=== PATIENT | female | born 1955 | race Caucasian/White ===

== ENCOUNTER → 2016-12-17 | Outpatient (CLI) | payer OTHER | LOC: FIMAGING 08:46 | PROVIDERS: ATTEND Internal Medicine Endocrinology, Diabetes & Metabolism | DX: R94.6 Abnormal results of thyroid function studies (principal) ==

== ENCOUNTER → 2016-12-31 | Outpatient (CLI) | payer OTHER | LOC: FIMAGING 12:35 | DX: Z12.31 Encounter for screening mammogram for malignant neoplasm of breast (principal) | CPT/HCPCS: G0202 ==

== ENCOUNTER → 2017-01-08 | Outpatient (CLI) | payer OTHER | LOC: FIMAGING 10:09 | PROVIDERS: ATTEND Internal Medicine | DX: Z12.39 Encounter for other screening for malignant neoplasm of breast (principal); R92.2 Inconclusive mammogram | CPT/HCPCS: G0204 ==

== ENCOUNTER 2017-01-19 08:19 | Day surgery (SDC) | payer OTHER ==
[2017-01-19] MEDS ORDERED: FAMOTIDINE 20 MG TAB PO ONE (08:22)
[2017-01-19] MEDS ORDERED: ASPIRIN EC 325 MG TAB PO ONE (08:22)
[2017-01-19] MEDS ORDERED: NS 1,000 ML IV ONE (08:22)
[2017-01-19] MEDS ORDERED: DIAZEPAM 5 MG TAB PO ONE (08:22)
[2017-01-19] MEDS ORDERED: diphenhydrAMINE 25 MG CAP PO ONE (08:22)
--- NOTE | 2017-01-19 09:03 | CPEKG ---
Heart Rate: 53 RR Interval: 1132 P-R Interval: 168 QRSD Interval: 68 QT Interval: 448 QTC Interval: 421 P [place]: 34 QRS [place]: 35 T Wave [place]: 47 EKG Severity - NORMAL ECG - EKG Impression: Resolution of T-wave abnormalities since March 22, 2016 EKG Impression: SINUS RHYTHM EKG Impression: Probable left atrial abnormality Electronically Signed By: Bryson Chi 19-Jan-2017 12:20:05
[2017-01-19 09:32] LABS: % IMMATURE GRANULYOCYTES 0.4 % (0.0-1.1); ABSOLUTE IMMATURE GRANULOCYTES 0.03 10^3/uL (0.00-0.10); ADD DIFF? NO; ADD MORPH? NO; ADD SCAN? NO; ATYPICAL LYMPHOCYTE FLAG 0 (0-99); FRAGMENT RBC FLAG 0 (0-99); HEMATOCRIT 39.7 % (38.0-47.0); HEMOGLOBIN 13.4 g/dL (12.6-16.3); LEFT SHIFT FLG 0 (0-99); LIPEMIA HEMOLYSIS FLAG 90 (0-99); MEAN CELL HEMOGLOBIN 33.1 pg (27.9-34.1); MEAN CELL HEMOGLOBIN CONCENTR. 33.8 g/dL (32.4-36.7); MEAN PLATELET VOLUME 10.1 fL (8.7-11.7); PLATELET CLUMPS FLAG 0 (0-99); PLATELET COUNT 233 10^3/uL (150-400); RED BLOOD CELL COUNT 4.05 10^6/uL (4.18-5.33); RED CELL DISTRIBUTION WIDTH 12.3 % (11.5-15.2)
[2017-01-19] MEDS ORDERED: LIDOCAINE 1% 30 ML SDV ONE (09:43)
[2017-01-19 09:44] LABS: PROTIME(PATIENT) 13.1 SEC (12.0-15.0)
[2017-01-19] MEDS ORDERED: HEPARIN 10,000 UNIT/10 ML MDV ONE (09:44)
[2017-01-19] MEDS ORDERED: fentaNYL 100 MCG/2 ML INJ ONE (09:44)
[2017-01-19] MEDS ORDERED: VERAPAMIL 5 MG/2 ML VIAL ONE (09:44)
[2017-01-19] MEDS ORDERED: MIDAZOLAM 2 MG/2 ML VIAL ONE (09:44)
[2017-01-19] MEDS ORDERED: IOPAMIDOL (ISOVUE 370) 100 ML BTL IV ONE (09:45)
[2017-01-19 10:03] LABS: ANION GAP 10 mEq/L (8-16); CARBON DIOXIDE 23 mEq/l (22-31); CHLORIDE 107 mEq/L (97-110); CHOLESTEROL 207 mg/dL (140-220); CHOLESTEROL/HDL RATIO 3.18 RATIO (1.00-4.44); CREATININE 1.3 mg/dL (0.6-1.0); GLOMERULAR FILTRATION RATE 42; GLUCOSE 86 mg/dL (70-100); HIGH DENSITY LIPOPROTEIN 65 mg/dL (40-85); LDL/HDL RATIO 1.83 RATIO (1.00-3.22); LOW DENSITY LIPOPROTEIN 119 mg/dL (80-100); NON-HIGH DENSITY LIPOPROTEIN 142 mg/dL (90-129); POTASSIUM 3.9 mEq/L (3.5-5.2); SODIUM 140 mEq/L (134-144); TRIGLYCERIDE 118 mg/dL (35-135); VERY LOW DENSITY LIPOPROTEINS 23 mg/dL (8-25)
--- NOTE | 2017-01-19 14:13 | PDDXCAT ---
Diagnostic Cath Note - . Date: 01/19/17 Forestry Supervisor: Nathan Indication: CCC Class III and IV angina on medical treatment - Procedure Access: left wrist Procedure: left heart catheterization, coronary angiography - Materials Left Heart Cath materials: JL3.5, JR4.0 - Findings-Left Heart Catheterization LM: calcified. Unobstructed LAD: Stents patent LCX: Stents patent RCA: Stents patent Complications: none Closure method: TR Band Assessment: Patent site of prior stenting. Multi-vessel CAD. Patient Problems: Problems Problem Status Onset Fusion of spine of thoracolumbar region Acute Bacteremia due to Pseudomonas Acute Coronary artery disease Acute Chest pain Acute
== END 2017-01-19 15:53 | disposition home or self-care (01) ==
LOC: FCATH 08:19
PROVIDERS: ATTEND Internal Medicine Interventional Cardiology
DX: I25.10 Atherosclerotic heart disease of native coronary artery without angina pectoris (principal); E78.5 Hyperlipidemia, unspecified; I10 Essential (primary) hypertension; M06.9 Rheumatoid arthritis, unspecified; R78.81 Bacteremia; K21.9 Gastro-esophageal reflux disease without esophagitis; D59.3 Hemolytic-uremic syndrome; M85.80 Other specified disorders of bone density and structure, unspecified site; R00.2 Palpitations; L40.9 Psoriasis, unspecified; N28.9 Disorder of kidney and ureter, unspecified; Z95.5 Presence of coronary angioplasty implant and graft
CPT/HCPCS: 93005; 93458; C1769; J1644; J2250; J3010; Q9967

== ENCOUNTER 2017-04-29 16:01 | Observation (INO) | payer OTHER ==
--- NOTE | 2017-04-29 16:30 | EDPHY ---
H & P Time Seen by Provider: 04/29/17 16:04 HPI/ROS: CHIEF COMPLAINT: Hypertension, Left sided weakness. HISTORY OF PRESENT ILLNESS: The patient is a 62-year-old female presenting with hypertension and left sided weakness. 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 She states it "felt like my arm wasn't connected to me." Her blood pressure at that time was elevated at 200/100. Her pressure has since remained elevated. When she stood up to walk to the BR, her left foot felt floppy, like it didn't want to move and she was leaning to the left. This has now resolved. She also c/o two weeks of intermittent left sided chest discomfort. The cp is a sharp sensation that originates in the axilla and radiates under her breast and into her chest. This discomfort lasts for hours at a time. No alleviating or aggravating factors. She denies changes in speech, changes in vision, headache, or dizziness. REVIEW OF SYSTEMS: A comprehensive 10 point review of systems is otherwise negative aside from elements mentioned in the history of present illness. Past Medical/Surgical History: Hypertension Social History: . Smoking Status: Never smoked Physical Exam: General Appearance: Alert, pleasant Eyes: Pupils equal and round, no conjunctival pallor or injection ENT, Mouth: Mucous membranes moist Neck: Normal inspection Respiratory: Lungs are clear to auscultation Cardiovascular: Regular rate and rhythm Gastrointestinal: Abdomen is soft and non-tender Neurological: Alert, oriented x3, cranial nerves II through XII intact, motor 5/ 5, sensory intact to light touch Skin: Warm and dry, no rash Extremities: Nontender, no pedal edema Psychiatric: anxious Constitutional: Initial Vital Signs Temperature (C) 36.9 C 04/29/17 16:05 Heart Rate 65 04/29/17 16:05 Respiratory Rate 20 04/29/17 16:05 Blood Pressure 204/126 H 04/29/17 16:05 O2 Sat (%) 97 04/29/17 16:05 O2 Delivery Mode Room Air Allergies/Adverse Reactions: amlodipine besylate [From Norvasc] Allergy (Verified 04/29/17 16:23) cefepime Allergy (Verified 04/29/17 16:23) etanercept [From Enbrel] Allergy (Verified 04/29/17 22:30) levofloxacin Allergy (Verified 04/29/17 16:23) nifedipine [From Procardia] Allergy (Verified 04/29/17 16:23) tamsulosin HCl [From Flomax] Allergy (Verified 04/29/17 22:30) Home Medications: Medication Instructions Recorded predniSONE 5 mg PO DAILY #30 tab 02/26/15 prednisoLONE ACET 1% [Pred Forte 1 drops LEFTEYE DAILY #1 opht.btl 02/26/15 1% (*)] Cholecalciferol (Vitamin D3) 5,000 unit PO Q7D 03/13/16 [Vitamin D3] Eculizumab [Soliris] 1,200 mg IV Q21D 03/13/16 Fluconazole [Diflucan] 200 mg PO DAILY 03/13/16 Lisinopril [Zestril 5 mg (*)] 5 mg PO DAILY 03/21/16 Ondansetron Odt [Zofran Odt 4 mg 4 mg PO Q4 PRN 03/21/16 (*)] Aspirin [Aspirin EC] 81 mg PO DAILY 04/29/17 Ciprofloxacin [Cipro] 500 mg PO DAILY 04/29/17 Citric Acid/Sodium Citrate [Sod 10 ml PO BID 04/29/17 Citrate-Citric Acid Soln] Clopidogrel Bisulfate [Clopidogrel] 75 mg PO DAILY 04/29/17 Herbals/Supplements -Info Only 1 ea PO DAILY 04/29/17 Hydrochlorothiazide 12.5 mg PO DAILY 04/29/17 Methimazole [METHIMAZOLE] 10 mg PO DAILY 04/29/17 Metoprolol Succinate 25 mg PO DAILY 04/29/17 Nitroglycerin [Nitrostat 0.4 mg 0.4 mg SL Q5M PRN 04/29/17 (*)] Pravastatin Sodium [Pravachol] 80 mg PO DAILY 04/29/17 Ranolazine [Ranexa] 500 mg PO BID 04/29/17 traMADol [Ultram 50 mg (*)] 50 mg PO BID PRN 04/29/17 Medical Decision Making - Diagnostics EKG Interpretation: EKG interpreted by me reveals normal sinus rhythm, normal axis, normal intervals , ST and T segments normal. Interpretation: normal EKG Imaging Results: CT of the brain reveals chronic microvascular changes, read by the radiologist. Imaging: Discussed imaging studies w/ special education preschool teacher Radiologist ED Course/Re-evaluation: Clinical presentation concerning for acute TIA. BP is high, will obs for now. Neuro exam is normal and NIH stroke scale is zero. stat EKG reveals no ischemia or dysrhythmia. stat CT head reveals no evidence of acute CVA or hemorrhage. Already took ASA today. Pt c/o intermitted left sided weakness while in the ED. Serial exams unchanged and neuro exam normal. CT results d/w pt. Understands rationale for admission for further evaluation of cp and TIA. I consulted the hospitalist, Dr. Kearney, who accepts the patient for admission. Differential Diagnosis: includes though not limited to ACS, CVA, TIA, tumor, hemorrhage, hypoglycemia. - Data Points Laboratory Results: Laboratory Results 04/29/17 11:00 04/29/17 11:00 Medications Given: Discontinued Medications Aspirin Buffered (Aspirin Ec) 81 mg PO DAILY [facility] Stop: 10/27/17 08:59 Last Admin: 04/30/17 09:07 Dose: 81 mg Ciprofloxacin (Cipro) 500 mg PO DAILY [facility] PRN Reason: Protocol Stop: 05/30/17 08:59 Last Admin: 04/30/17 09:04 Dose: 500 mg Citric Acid/Sodium Citrate (Bicitra) 10 ml PO BID [facility] Stop: 10/26/17 20:59 Last Admin: 04/30/17 09:03 Dose: 10 ml Clopidogrel Bisulfate (Plavix) 75 mg PO DAILY [facility] Stop: 10/27/17 08:59 Last Admin: 04/30/17 09:04 Dose: 75 mg Fluconazole (Diflucan) 200 mg PO DAILY [facility] Stop: 05/30/17 08:59 Last Admin: 04/30/17 09:19 Dose: 200 mg Hydrochlorothiazide (Hydrochlorothiazide) 12.5 mg PO DAILY [facility] Stop: 10/27/17 08:59 Last Admin: 04/30/17 09:04 Dose: 12.5 mg Lisinopril (Zestril) 5 mg PO HS [facility] Stop: 10/26/17 20:59 Last Admin: 04/29/17 22:14 Dose: 5 mg Methimazole (Tapazole) 10 mg PO HS [facility] Stop: 10/26/17 21:59 Last Admin: 04/29/17 22:15 Dose: 10 mg Metoprolol Succinate (Toprol Xl) 25 mg PO HS [facility] Stop: 10/26/17 20:59 Last Admin: 04/29/17 22:14 Dose: 25 mg Pravastatin Sodium (Pravachol) 80 mg PO HS [facility] Stop: 10/26/17 20:59 Last Admin: 04/29/17 22:15 Dose: 80 mg Prednisolone Acetate (Pred Forte 1%) 1 drops LEFTEYE DAILY [facility] Stop: 10/27/17 08:59 Last Admin: 04/30/17 11:12 Dose: Not Given Prednisone (Prednisone) 5 mg PO DAILY [facility] Stop: 10/27/17 08:59 Last Admin: 04/30/17 09:04 Dose: 5 mg Ranolazine (Ranexa) 500 mg PO BID [facility] Stop: 10/26/17 20:59 Last Admin: 04/30/17 09:04 Dose: 500 mg Departure - Departure Disposition: [facility] Inpatient Acute Clinical Impression: Left-sided weakness Condition: Fair Report Scribed for: Ana Laura Patel Report Scribed by: Elizabeth Mcqueen Date of Report: 04/29/17 Time of Report: 16:36 Physician Review and Approval Statement: 04/29/17 16:36 Portions of this note were transcribed by a medical staff credentialing coordinator. I personally performed the history, physical exam, and medical decision-making; and confirmed the accuracy of the information in the transcribed note.
--- NOTE | 2017-04-29 16:43 | CPEKG ---
Heart Rate: 60 RR Interval: 1000 P-R Interval: 152 QRSD Interval: 56 QT Interval: 452 QTC Interval: 452 P [place]: 6 QRS [place]: 25 T Wave [place]: 47 EKG Severity - NORMAL ECG - EKG Impression: SINUS RHYTHM Electronically Signed By: Ana Laura Patel 29-Apr-2017 20:41:36
[2017-04-29 16:52] LABS: % IMMATURE GRANULYOCYTES 0.8 % (0.0-1.1); ABSOLUTE IMMATURE GRANULOCYTES 0.05 10^3/uL (0.00-0.10); ADD DIFF? NO; ADD MORPH? NO; ADD SCAN? NO; ATYPICAL LYMPHOCYTE FLAG 0 (0-99); FRAGMENT RBC FLAG 0 (0-99); HEMATOCRIT 42.6 % (38.0-47.0); HEMOGLOBIN 14.2 g/dL (12.6-16.3); LEFT SHIFT FLG 0 (0-99); LIPEMIA HEMOLYSIS FLAG 80 (0-99); MEAN CELL HEMOGLOBIN 32.3 pg (27.9-34.1); MEAN CELL HEMOGLOBIN CONCENTR. 33.3 g/dL (32.4-36.7); MEAN CELL VOLUME 96.8 fL (81.5-99.8); MEAN PLATELET VOLUME 10.9 fL (8.7-11.7); PLATELET CLUMPS FLAG 0 (0-99); PLATELET COUNT 231 10^3/uL (150-400); RED CELL DISTRIBUTION WIDTH 12.9 % (11.5-15.2)
[2017-04-29 17:05] LABS: ANION GAP 13 mEq/L (8-16); CALCIUM 10.2 mg/dL (8.5-10.4); CARBON DIOXIDE 20 mEq/l (22-31); CHLORIDE 107 mEq/L (97-110); CREATININE 1.3 mg/dL (0.6-1.0); GLOMERULAR FILTRATION RATE 42; GLUCOSE 89 mg/dL (70-100); POTASSIUM 4.4 mEq/L (3.5-5.2); SODIUM 140 mEq/L (134-144)
[2017-04-29 17:17] LABS: TROPONIN I < 0.012 ng/mL (0-0.034)
[2017-04-29] MEDS ORDERED: ONDANSETRON DISINTEGRATING 4 MG TAB PO PRN ×2 (18:39→20:21)
[2017-04-29] MEDS ORDERED: ONDANSETRON 4 MG/2 ML VIAL IVP PRN (18:39)
[2017-04-29] MEDS ORDERED: ACETAMINOPHEN 325 MG TAB PO PRN (18:39)
--- NOTE | 2017-04-29 20:01 | GHP ---
[f rep st] HISTORY AND PHYSICAL DATE OF ADMISSION: 04/29/2017 HISTORY OF PRESENT ILLNESS: The patient is a pleasant 62-year-old female with a history of atypical hemolytic uremia, coronary artery disease with stents, who was getting an outpatient infusion in [facility] [place] today when she developed left-sided weakness that occurred as she was getting up t o leave. The infusion today was eculizumab, also known as Soliris. This is an anti-hemolytic uremi c syndrome drug. She was noted to be hypertensive, much more so than usual. Her was there. He did not notice any facial droop. Her left arm felt light but not weak. When I see her, she finds that her symptoms have largely improved. She does have palpitations, but these are somewhat chronic in nature for her and not new. She has no previous history of atrial arr hythmia. She does have coronary disease. No fever, chills, cough, sputum, nausea, vomiting, diarrhea. She states that her left leg is not ty pically weak. She does wear a lift in the left shoe, but this is the same one she has always been w earing. It is not new, etc. REVIEW OF SYSTEMS: Complete 10-point review of systems conducted. Negative except as noted in the H PI. PAST MEDICAL HISTORY: 1. Coronary disease with multiple stents. 2. Atypical hemolytic anemia. 3. following a back surgery. 4. Pseudomonal back infection following spine surgery. 5. Chronic kidney disease with baseline creatinine of 1.3 to 1.7. 6. Seronegative rheumatoid arthritis. 7. Hypertension. 8. Reflux. 9. Osteoporosis left hip surgery, wrist surgery. HOME MEDICATIONS: Aspirin, biotin, vitamin D3, ciprofloxacin (suppressive), clobetasol topical, ecu lizumab, fluconazole, hydrochlorothiazide, lisinopril, ondansetron, Plavix, prednisolone eye drops, 5 mg of prednisone, Ranexa, sodium citrate, tramadol. ALLERGIES: Amlodipine, cefepime, levofloxacin, etanercept, nifedipine, and tamsulosin, SOCIAL HISTORY: She lives in [place]. present at the bedside. Nonsmoker. Nondrinker. FAMILY HISTORY: Notable for kidney disease. PHYSICAL EXAM: VITAL SIGNS: Temp 36.9, blood pressure 204/126, now about 170/100, pulse in the 50s and 60s, breathing 20 times a minute, 97% on room air. GENERAL: No acute distress. Sclerae anict markell. Oropharynx clear. Mucous membranes are moist. NECK: Supple without lymphadenopathy or JVD. LUNGS: Clear to auscultation bilaterally. HEART: S1, S2. Port. ABDOMEN: Soft, nontender, non distended. LOWER EXTREMITIES: Without edema. Calves are nontender. SKIN: Without rash. NEUROLO GIC: 4/5 strength of flexion and extension of the left leg compared with the right. Otherwise, str ength is normal including the left upper extremity. There is no facial droop. Cranial nerves 2-12 are intact. DIAGNOSTIC DATA: CAT scan reported to me shows chronic microvascular ischemic disease without acute event. EKG shows sinus at 60 with normal axis and intervals. No ST or T-wave changes. I have discussed th e case with Dr. Annie Patel. ASSESSMENT/PLAN: A 62-year-old female who presents with left leg weakness and left arm lightness, c oncerning for neurovascular event. 1. Question stroke. The patient has very mild weakness and a low NIH stroke scale and at this poin t in time is not a candidate for lytics. I do have concerns that there may be a smaller stroke has been ordered. We will complete the stroke workup with lipid panel, hemoglobin A1c, and e chocardiogram as well as MRI of the brain. 2. Coronary artery disease. Continue her medications. 3. History of autoimmune hemolytic anemia. I do not think that the medication is playing a role in this. She has been on this for a number of years. 4. Chronic kidney disease. Creatinine at baseline. 5. Prophylaxis. Pharmacologic prophylaxis indicated if in the hospital longer than 24 hours. For now, will just go with SCDs. She is on dual antiplatelets. 6. Disposition. Observation status. /[id number]/MODL
[2017-04-29] MEDS ORDERED: traMADol 50 MG TAB PO PRN (20:22)
[2017-04-29] MEDS ORDERED: LISINOPRIL 5 MG TAB PO SCH (21:00)
[2017-04-29] MEDS ORDERED: METOPROLOL SUCCINATE XR 25 MG TAB PO SCH (21:00)
[2017-04-29] MEDS ORDERED: PRAVASTATIN SODIUM 40 MG TAB PO SCH (21:00)
[2017-04-29] MEDS ORDERED: METHIMAZOLE 5 MG TAB PO SCH (22:00)
[2017-04-29] MEDS: RANOLAZINE 500 MG TAB.ER PO SCH (22:14)
[2017-04-29] MEDS: CITRIC ACID/SODIUM CITRATE 30 ML UDCUP PO SCH (22:15)
[2017-04-30 04:49] LABS: % IMMATURE GRANULYOCYTES 0.4 % (0.0-1.1); ABSOLUTE IMMATURE GRANULOCYTES 0.02 10^3/uL (0.00-0.10); ADD DIFF? NO; ADD MORPH? NO; ADD SCAN? NO; ATYPICAL LYMPHOCYTE FLAG 0 (0-99); FRAGMENT RBC FLAG 0 (0-99); HEMATOCRIT 39.2 % (38.0-47.0); HEMOGLOBIN 12.8 g/dL (12.6-16.3); LEFT SHIFT FLG 0 (0-99); LIPEMIA HEMOLYSIS FLAG 80 (0-99); MEAN CELL HEMOGLOBIN 31.7 pg (27.9-34.1); MEAN CELL HEMOGLOBIN CONCENTR. 32.7 g/dL (32.4-36.7); MEAN PLATELET VOLUME 10.4 fL (8.7-11.7); PLATELET CLUMPS FLAG 0 (0-99); PLATELET COUNT 221 10^3/uL (150-400); RED BLOOD CELL COUNT 4.04 10^6/uL (4.18-5.33); RED CELL DISTRIBUTION WIDTH 12.8 % (11.5-15.2)
[2017-04-30 04:59] LABS: INR 1.03 (0.83-1.16); PROTIME(PATIENT) 13.4 SEC (12.0-15.0)
[2017-04-30 05:09] LABS: ANION GAP 11 mEq/L (8-16); CALCIUM 9.8 mg/dL (8.5-10.4); CARBON DIOXIDE 22 mEq/l (22-31); CHLORIDE 110 mEq/L (97-110); CHOLESTEROL 177 mg/dL (140-220); CREATININE 1.3 mg/dL (0.6-1.0); GLOMERULAR FILTRATION RATE 42; GLUCOSE 75 mg/dL (70-100); HIGH DENSITY LIPOPROTEIN 61 mg/dL (40-85); LDL/HDL RATIO 1.54 RATIO (1.00-3.22); LOW DENSITY LIPOPROTEIN 94 mg/dL (80-100); NON-HIGH DENSITY LIPOPROTEIN 116 mg/dL (90-129); POTASSIUM 4.2 mEq/L (3.5-5.2); SODIUM 143 mEq/L (134-144); TRIGLYCERIDE 111 mg/dL (35-135); VERY LOW DENSITY LIPOPROTEINS 22 mg/dL (8-25)
[2017-04-30 08:40] VITALS: O2SAT 99
[2017-04-30] MEDS ORDERED: prednisoLONE ACET 1% 5 ML OPHT.BTL LEFTEYE SCH (09:00)
[2017-04-30] MEDS ORDERED: predniSONE 5 MG TAB PO SCH (09:00)
[2017-04-30] MEDS ORDERED: HYDROCHLOROTHIAZIDE 25 MG TAB PO SCH (09:00)
[2017-04-30] MEDS ORDERED: ASPIRIN EC 81 MG TAB PO SCH (09:00)
[2017-04-30] MEDS ORDERED: Herbals/Supplements -Info Only PO SCH (09:00)
[2017-04-30] MEDS ORDERED: CIPROFLOXACIN 500 MG TAB PO SCH (09:00)
[2017-04-30] MEDS ORDERED: CLOPIDOGREL BISULFATE 75 MG TAB PO SCH (09:00)
[2017-04-30] MEDS ORDERED: FLUCONAZOLE 100 MG TAB PO SCH (09:00)
[2017-04-30] MEDS: CITRIC ACID/SODIUM CITRATE 30 ML UDCUP PO SCH (09:03)
[2017-04-30] MEDS: RANOLAZINE 500 MG TAB.ER PO SCH (09:04)
[2017-04-30 09:32] LABS: HEMOGLOBIN A1C 5.3 % (4.0-6.0)
--- NOTE | 2017-04-30 09:38 | GCON ---
[f rep st] CONSULTATION REFERRING PHYSICIAN: Silvestre Kearney MD HISTORY: The patient is a 62-year-old woman, whom I am asked to see in neurologic consultation mor rice an episode yesterday of some dysfunction of her left arm and some abnormal feelings in the lef t side of her head. The patient has an extremely complex history, which dates back to around 2002, when she had been receiving Enbrel infusions for treatment of psoriatic arthritis. During this time frame, she had a phenomenon develop with dysfunction of the left side of her head, like a pain or a bnormal sensation that was a little hard to put into words. She subsequently developed what sounds like a visual field impairment, and had trouble trying to write a check at the time. This led to ex tensive evaluation with Neurology and assessments in [place]. She had brain MRI showing lesions comp atible with demyelination, and was thought to be complications of either Enbrel or multiple sclerosi s. The neurologist at the time who was treating her, thought he would treat for multiple sclerosis given the uncertainty, and she was put on Avonex for a few months. After this, she got another opin ion at the [facility] with Dr. Dolan, who ultimately felt she probably did not have multiple sc lerosis, and had her discontinue the treatment, and she has never been on any other treatment for th at disease since then. The ultimate conclusion was that she probably had lesions associated with En brel use, which has been documented, although a relatively rare phenomenon. She has not been on idalmis t treatment now for 14 years. She later developed intractable lumbar spine problems, and had surgery about 2 to 2-1/2 years ago. She had some complications with pseudomonas infection, and developed hemolytic uremic syndrome, and has subsequently been diagnosed with an atypical hemolytic uremic syndrome, and is on regular infusi ons for the last 2 years for this exceptionally rare condition, which is apparently relatively stabl e. She has had some other symptoms in the past, with transient neurologic dysfunction or nonspecifi c feelings of disequilibrium, and says that it is not rare for her to temporarily feel vertigo-type symptoms. Yesterday, she was getting treated with Soliris, this medication for her hemolytic uremic syndrome, when she started to have an abnormal feeling in the left side of her head, and then started to have a sense that her left arm was not connected to her body or floating, without clarity as to whether i t was actually weak or not. She also tells me for several weeks she has been having some unusual pa in in the left axilla region and along the upper anterolateral thorax, sometimes into the arm, and w hen she was having these symptoms yesterday, there was a question raised whether it could represent cardiac problem. She got her infusion, and then started to develop symptoms with associated hyperte nsion, having a systolic around 200 when her baseline is more like 110. All this led to Dr. Scooter mcdowell ing a rescue squad called and had the patient go to the emergency room for appropriate diagnostic ev aluation. For the most part, symptoms were resolved within an hour or so. The exact time frame is hard to say. She did not have clear-cut deficits on neurologic exam, so NIH stroke scale has basica lly been 0. In order to thoroughly evaluate everything, she had a head CT, that was unremarkable fo r anything specific, and MRI showing nonspecific white matter changes, but we do not have the old on e directly available for comparison, because it was 2002, she said. She has had a carotid ultrasoun d, with results pending. She tells me now she basically feels back to her baseline. She is not having headache, and does not have the pain or dissociated feeling or abnormal sensations in the left upper extremity. There are not clear-cut alleviating or exacerbating factors. The symptoms were moderate when they occurred a nd had some similarity to other unusual phenomena she has had over the years. REVIEW OF SYSTEMS: 10-point review of systems was completed and unremarkable except for that noted above. PAST MEDICAL HISTORY: Notable for coronary disease with stenting; this atypical hemolytic uremic sy ndrome; lumbar spine surgery with some chronic unequal leg length; pseudomonal infection after spine surgery in the back, 2014; chronic kidney disease; psoriatic arthritis or seronegative rheumatoid a rthritis; hypertension; reflux; osteoporosis. ALLERGIES: Amlodipine, cefepime, levofloxacin, etanercept, nifedipine, tamsulosin, these intermitte nt infusions. MEDICATIONS: Prior to coming to the hospital included aspirin, biotin, vitamin D3, clobetasol, topi pernell fluconazole, hydrochlorothiazide, lisinopril, ondansetron, Plavix, prednisone eye drops, 5 mg of prednisone, Ranexa, sodium citrate, and tramadol. SOCIAL HISTORY: She lives in [place]. She is . No smoking. No alcohol. FAMILY HISTORY: Kidney disease. She says she has had genetic analysis for mutations known to be as sociated with HUS, but has not had any positive results. PHYSICAL EXAMINATION: VITAL SIGNS: Blood pressure 155/78. The pressure last evening when she came in, at 4 in the afternoon, was 204/126, and remained close to 200 systolic over the next several ho urs, though was down to 125 systolic at 2335. Current pulse is 53, respirations 17, temperature 36. 8, and she has remained afebrile. GENERAL: She is well developed, lying in the bed, in no acute di stress. HEENT: Eyes are clear. NECK: Supple with no bruits or masses. CARDIAC: Regular rate an d rhythm. No murmur. EXTREMITIES: No cyanosis or edema. No skin rash or purpura. NEUROLOGIC: S he is awake, alert, and attentive, and oriented to person, place, and time. She has good recent and remote memory. Good general fund of knowledge. Normal concentration and attention. The language is fluent. Pupils 2 mm and reactive. I cannot view the fundi. Visual serrato are full. Extraocula r movements are intact. Normal facial sensation and strength. Palate elevates symmetrically. Tong ue protrudes midline. Hearing is preserved. No weakness of head turning or shoulder shrug. Motor exam: Normal muscle bulk and tone, with 5/5 strength and no abnormal movements. Sensation is prese rved for temperature and light touch. Reflexes are 1+ and symmetric. No pathologic reflexes. No a taxic movements in the upper extremities. DIAGNOSTIC DATA: I have directly reviewed the brain MRI and see multiple bilateral nonspecific whit e matter changes consistent with areas of demyelination, most likely, versus chronic ischemic vascul ar disease. We do not have the old study currently available for direct comparison. I have also re viewed the head CT, which does not show hemorrhage or stroke or mass lesions. LABORATORY STUDIES: Unremarkable CBC and INR, and chemistry shows creatinine of 1.3. LDL cholester ol 94. ASSESSMENT: The patient has experienced an episode of neurologic dysfunction, which goes along with other episodes that have occurred intermittently since 2002. The initial episodes were thought to be related to complications of Enbrel use, and was subsequently discontinued. An episode a few year s ago, where she had lost perception and could not remember part of a bike ride, was of uncertain ca use. She says she never had any neurologic workup for that. She has subsequently had some paresthe jaime and discomfort intermittently in the last 2 weeks in the left axilla region and arm, which is p robably superficial neuritic pain, but not a central nervous system problem. The event yesterday wh ere she was feeling dissociated from her left arm and had some abnormal perceptions of the left side of her face, is of very uncertain cause. In all probability, she did not have a classic transient ischemic attack, because I do not think she had a clot form locally, nor do I think she had an embol ic event. It is certainly on the differential diagnosis, but the evolution simply seems very atypic al for that. Other considerations could have been relative hypotension, and it is unclear whether t he hypertension she developed was primary to the event, or a reaction to what was occurring. The ev ent does not sound like seizure or migraine phenomena. Her NIH stroke scale is 0. Carotid ultrasou nd results are pending, so we should make sure those do not show anything unexpected, but this does not sound like a carotid ischemic event. Her other problems include Enbrel-associated demyelination, with basic workup in the past for possib le multiple sclerosis, but ultimately felt not to represent true autoimmune multiple sclerosis. She has the history of atypical hemolytic uremic syndrome, which is stable on the current infusions, an d I do not believe infusions themselves are likely the source of this issue. She has a history of prior lumbar spine disease with associated infection and multiple complications , but that has stabilized and she does not have severe pain at this point. Psoriatic arthritis, on chronic immunosuppression and relatively stable, she says. At this point, I believe the patient can be discharged with outpatient followup. I am happy to see her for any neurologic-related issues as they may arise, and we had a discussion about all of this i n detail. I do not believe she needs to have any statin therapy, because I am not considering this to be a definite transient ischemic attack. /[id number]/MODL
[2017-04-30 12:27] VITALS: RESP 14; TEMP 98.5
[2017-04-30 12:28] VITALS: PULSE 67
--- NOTE | 2017-04-30 12:44 | ECHO ---
[id number] + + [address] : : [place] [address] : : [phone] + + Adult Echocardiographic Report + --------+ :Name: CLAUDIA SORIANO Date: 04/30/2017 11:21 AM : : Hospital Admission Number: [id number] Locat ion: 360: :: 1955 Gender: Female Height: 61 in : :Age: 62 yrs Race: WH Weight: 112 l b : :Reason For Study: Eval LV Fx : : BSA: 1.5 mete rs2 : :History: TIA, Hx of Stents : + --------+ MMode/2D Measurements \T\ Calculations IVSd: 0.76 cm LVIDd: 3.6 cm FS: 38.7 % Ao root diam: 2.8 cm LVPWd: 0.82 cm LVIDs: 2.2 cm EDV(Teich): 54.8 ml ACS: 1.6 cm ESV(Teich): 16.4 ml EF(Teich): 70.0 % Normal Measurement Values: + + :LVIDd (3.5-5.7cm) IVSd (0.6-1.1cm) LVPWd (0.6-1.1cm) Aortic Root (2.0-3.7cm)Left Atrium (1.5-4.0cm): :LV Vol(d) (76-115ml) LV Vol(s) (29-48ml) Ejec Fraction (50-65%)PV Isidoro (0.6- 1.2m/s) TV Isidoro (0.4-1.0m/s) : :MV E Isidoro (0.8-1.0m/s)MV A Isidoro (0.3-1.0m/s)LVOT Isidoro (0.7-1.2m/s) Asc Ao Isidoro ( 0.9-1.8m/s) : + + Doppler Measurements \T\ Calculations MV E max isidoro: Ao V2 max: LV V1 max: PA V2 max: 66.1 cm/sec 101.8 cm/sec 77.0 cm/sec 69.2 cm/sec MV A max isidoro: Ao max P.1 mmHg LV V1 max PG: PA max P.0 cm/sec 2.4 mmHg 1.9 mmHg MV E/A: 0.86 Left Ventricle The left ventricle is normal in size. There is normal left ventricular wall thickness. The left ventricular ejection fraction is normal. There is Doppler evidence for diastolic dysfunction. Ejection Fraction = 70%. The left ventricular ejection fraction is calculated at 70.0 %. The left ventricular wall motion is normal. Right Ventricle The right ventricle is normal in size and function. Atria The left atrial size is normal. Right atrial size is normal. Mitral Valve The mitral valve is normal in structure and function. There is no mitral regurgitation noted. Tricuspid Valve Normal tricuspid valve. There is trace tricuspid regurgitation. Aortic Valve The aortic valve is normal in structure and function. The aortic valve is trileaflet. There is no aortic stenosis. There is no aortic insufficiency. Pulmonic Valve The pulmonic valve is not well visualized. There is no pulmonic valvular regurgitation. Great Vessels The aortic root is normal size. Pericardium/Pleural There is no pericardial effusion. Conclusion A complete two-dimensional transthoracic echocardiogram was performed (2D, M-mode, Doppler and color flow Doppler). (1) Left ventricular systolic ejection fraction was normal (70%) - normal wall motion (2) No left ventricular hypertrophy (3) Diastolic dysfunction was present (4) Normal right ventricular size and function (5) Normal atrial dimensions (6) Grossly normal mitral valve (7) Trileaflet aortic valve without sclerosis or insufficiency (8) Physiologic tricuspid regurgitation (9) Poor visualization of the pulmonic valve (10) No prior echocardiography Final Reading Physician: Chaparro Richards signed on 04/30/2017 12:43 PM Ordering Physician: Silvestre Kearney Performed By: Marvin Roberto, CS
[2017-04-30 13:30] VITALS: BP 157/87
--- NOTE | 2017-04-30 17:40 | GDS ---
[f rep st] DISCHARGE SUMMARY DISCHARGE DIAGNOSES: 1. Left-sided neurological symptoms, uncertain etiology. 2. Elevated blood pressure. 3. Hypertension. 4. History of hemolytic uremic syndrome. 5. Chronic kidney disease. 6. Seronegative rheumatoid arthritis. HISTORY: This is a 62-year-old female with a history of atypical hemolytic uremia, who presented wi th left arm weakness and dissociative feelings. She also is noted to be hypertensive at the time. HOSPITAL COURSE: Patient was admitted and monitored overnight. Her symptoms have largely resolved prior to her being admitted. Her blood pressure was elevated in the 190s over 100s initially. Over the next day, they have come down, although not back to her baseline. She had an MRI of her brain that was negative. Neurology saw the patient, as well, who thought this was not a TIA. Again, her symptoms have resolved. Her blood pressure is more elevated than normal, though it seems to be trending down over the last d ay. It is currently in the 150s systolic. Her electric serviceman, Dr. Walker, usually manages her blo od pressure. At this time, I think it is reasonable to discharge her. She will monitor her blood p ressure carefully. If it is consistently over the 180s systolic, she is instructed to take another dose of lisinopril. She will make an appointment with Dr. Walker, as well. TIME SPENT: Greater than 30 minutes was spent on discharge. /[id number]/MODL
[2017-05-03] MEDS ORDERED: CHOLECALCIFEROL VIT D3 2,000 UNITS TAB/CAP PO SCH (09:00)
== END 2017-04-30 16:14 | disposition home or self-care (01) ==
LOC: EDUNIT# → F3N 21:20
PROVIDERS: ADMIT Internal Medicine; ATTEND Internal Medicine
DX: R20.2 Paresthesia of skin (principal); R53.1 Weakness; I12.9 Hypertensive chronic kidney disease with stage 1 through stage 4 chronic kidney disease, or unspecified chronic kidney disease; D59.3 Hemolytic-uremic syndrome; L40.50 Arthropathic psoriasis, unspecified; N18.9 Chronic kidney disease, unspecified; M81.0 Age-related osteoporosis without current pathological fracture; I25.10 Atherosclerotic heart disease of native coronary artery without angina pectoris; Z95.5 Presence of coronary angioplasty implant and graft
CPT/HCPCS: 70450; 70551; 93005; 93306; 93880; 97161; 97166; G0378; G8978; G8979; G8980; G8987; G8988; G8989; J1642

== ENCOUNTER → 2017-10-06 | Outpatient (CLI) | payer OTHER | LOC: FIMAGING 16:11 | PROVIDERS: ATTEND Podiatrist Foot & Ankle Surgery | DX: M21.70 Unequal limb length (acquired), unspecified site (principal) ==

== ENCOUNTER 2017-10-16 11:16 | Emergency (ER) | payer OTHER ==
[2017-10-16 11:25] VITALS: RESP 18
[2017-10-16] MEDS ORDERED: NS 1,000 ML IV ONE (11:54)
[2017-10-16 12:04] LABS: PLATELET COUNT 192 10^3/uL (150-400)
[2017-10-16] MEDS ORDERED: FAMOTIDINE 20 MG/NACL 50 ML IV ONE (12:42)
[2017-10-16] MEDS ORDERED: ONDANSETRON 4 MG/2 ML VIAL IVP ONE (12:42)
--- NOTE | 2017-10-16 13:15 | CPEKG ---
Heart Rate: 70 RR Interval: 857 P-R Interval: 164 QRSD Interval: 70 QT Interval: 408 QTC Interval: 441 P Home: 77 QRS Home: 61 T Wave Home: 71 EKG Severity - BORDERLINE ECG - EKG Impression: SINUS RHYTHM EKG Impression: PROBABLE LEFT ATRIAL ABNORMALITY Electronically Signed By: Con Villatoro 16-Oct-2017 15:25:37
--- NOTE | 2017-10-16 14:08 | EDPHY ---
H & P Time Seen by Provider: 10/16/17 12:41 HPI/ROS: HPI Flu-like symptoms. 62-year-old female by private vehicle with her . This patient reports she has had a sore throat, muscle aches and joint aches, nonproductive cough, nausea with 1 episode of nonbilious, nonbloody vomiting this morning, fatigue, fever and chills onset yesterday. She also reports that she has had a gradual onset dull frontal headache since yesterday as well. She was vaccinated for influenza. ROS: Constitutional: As above. Eyes: No discharge. No changes in vision. ENT: As above. No nasal congestion or rhinorrhea. Respiratory: Dry nonproductive cough. No shortness of breath. Cardiac: No chest pain, no palpitations. Gastrointestinal: No abdominal pain, no vomiting, no diarrhea. Genitourinary: No hematuria. No dysuria or increased frequency with urination. Musculoskeletal: As above. No neck pain. Skin: No rashes. Neurological: As above. No focal weakness or altered sensation. Past medical history: Coronary artery disease with stents x4, hypertension, hyperlipidemia, arthritis, stage III renal disease with history of dialysis, orthopedic surgeries, GERD. Social history: Here with her . Nonsmoker. No alcohol. Physical Exam: General Appearance: Alert, no distress. This patient is responding to questions appropriately and in full sentences. This patient appears well- hydrated and well-nourished. Eyes: Pupils equal and round no pallor or injection. No lid edema, erythema or injection. ENT, Mouth: Mucous membranes are moist. The pharyngeal tissues are unremarkable. No edema or swelling. No asymmetry suggestive of abscess. No erythema or exudates. Respiratory: There are no retractions, lungs are clear to auscultation with good air movement bilaterally. Cardiovascular: Regular rate and rhythm. No murmur. Gastrointestinal: Abdomen is soft and nontender, no masses, bowel sounds normal. No focal tenderness at McBurney's point. No Keller sign. Neurological: Motor sensory function is grossly intact. Cranial nerves are normal. Gait is normal. Skin: Warm and dry, no rashes. Musculoskeletal: Neck is supple and nontender. No pain on flexion of her neck. Extremities are symmetrical. All joints range without pain or impingement. Psychiatric: No agitation. No depression. Database: EKG: EKG time is 1:14 p.m.; EKG shows a narrow complex normal sinus rhythm with a ventricular rate of 70. The AR, QRS, QT intervals are within normal limits. There are no ST-T wave changes indicative of ischemic or injury pattern. No evidence of right heart strain. No evidence of WPW, Brugada syndrome, hypertrophic cardiomyopathy. Interpreted by me. Imaging: Chest x-ray PA and lateral; the cardiac mediastinal silhouette is unremarkable. Left chest Port-A-Cath with tip in the SVC. Spinal hardware appears unremarkable. No evidence of infiltrate or pneumothorax. No acute cardiopulmonary disease process noted. Interpreted by me. Procedures: Emergency department course: Vital signs reviewed and are normal. IV was placed. She was started on IV normal saline with 500 cc to 1 L to be given over the next 1-2 hours. She was initially given 4 mg of IV Zofran and 20 mg of IV Pepcid for nausea. She falls within the treatment window for Tamiflu. Her presentation is consistent with influenza. She was given 75 mg of oral Tamiflu. 2:25 p.m., patient re-evaluated. Results of chest x-ray discussed with her. She is feeling better at this time. Her emergency department workup was reviewed with her and her in detail. She does feel comfortable going home at this time. I will prescribe her Tamiflu. I discussed Tylenol dosing with her and her . Return to emergency department precautions were thoroughly reviewed. Supportive care discussed. All of her questions were answered. She was discharged in good condition. Differential Diagnosis: The differential diagnosis on this patient includes but is not limited to influenza, viral syndrome. Serious bacterial infection, pneumonia unlikely. This represents a partial list of diagnoses considered. These considerations are based on history, physical exam, past history, reassessment and diagnostic testing. Smoking Status: Never smoked Constitutional: Initial Vital Signs Temperature (C) 36.9 C 10/16/17 11:21 Heart Rate 90 10/16/17 11:21 Respiratory Rate 18 10/16/17 11:21 Blood Pressure 113/71 10/16/17 11:21 O2 Sat (%) 99 10/16/17 11:21 O2 Delivery Mode Room Air Allergies/Adverse Reactions: amlodipine besylate [From Norvasc] Allergy (Verified 04/29/17 16:23) cefepime Allergy (Verified 04/29/17 16:23) etanercept [From Enbrel] Allergy (Verified 04/29/17 22:30) levofloxacin Allergy (Verified 04/29/17 16:23) nifedipine [From Procardia] Allergy (Verified 04/29/17 16:23) tamsulosin HCl [From Flomax] Allergy (Verified 04/29/17 22:30) Home Medications: Medication Instructions Recorded predniSONE 5 mg PO DAILY #30 tab 02/26/15 prednisoLONE ACET 1% [Pred Forte 1 drops LEFTEYE DAILY #1 opht.btl 02/26/15 1% (*)] Cholecalciferol (Vitamin D3) 5,000 unit PO Q7D 03/13/16 [Vitamin D3] Eculizumab [Soliris] 1,200 mg IV Q21D 03/13/16 Fluconazole [Diflucan] 200 mg PO DAILY 03/13/16 Lisinopril [Zestril 5 mg (*)] 5 mg PO DAILY 03/21/16 Ondansetron Odt [Zofran Odt 4 mg 4 mg PO Q4 PRN 03/21/16 (*)] Aspirin [Aspirin EC] 81 mg PO DAILY 04/29/17 Ciprofloxacin [Cipro] 500 mg PO DAILY 04/29/17 Citric Acid/Sodium Citrate [Sod 10 ml PO BID 04/29/17 Citrate-Citric Acid Soln] Clopidogrel Bisulfate [Clopidogrel] 75 mg PO DAILY 04/29/17 Herbals/Supplements -Info Only 1 ea PO DAILY 04/29/17 Hydrochlorothiazide 12.5 mg PO DAILY 04/29/17 Methimazole [METHIMAZOLE] 10 mg PO DAILY 04/29/17 Metoprolol Succinate 25 mg PO DAILY 04/29/17 Nitroglycerin [Nitrostat 0.4 mg 0.4 mg SL Q5M PRN 04/29/17 (*)] Pravastatin Sodium [Pravachol] 80 mg PO DAILY 04/29/17 Ranolazine [Ranexa] 500 mg PO BID 04/29/17 BIOTIN 10/16/17 Ondansetron Odt [Zofran Odt 4 mg 4 mg PO Q4PRN PRN #10 tab 10/16/17 (*)] Oseltamivir Phosphate [Tamiflu 75 75 mg PO BID #10 cap 10/16/17 mg (RX)] Medical Decision Making - Data Points Laboratory Results: Laboratory Results 10/16/17 11:50 10/16/17 11:50 Microbiology Results: MICROBIOLOGY 10/16/17 13:15 Unspecified Urine Culture - Preliminary Medications Given: Discontinued Medications Sodium Chloride (Ns) 1,000 mls @ 0 mls/hr IV EDNOW ONE; Wide Open PRN Reason: Protocol Stop: 10/16/17 11:55 Last Admin: 10/16/17 12:49 Dose: 1,000 mls Famotidine/Sodium Chloride (Pepcid 20 Mg (Premix)) 50 mls @ 200 mls/hr IV EDNOW ONE Stop: 10/16/17 12:56 Last Admin: 10/16/17 12:49 Dose: 50 mls Ondansetron HCl (Zofran) 4 mg IVP EDNOW ONE Stop: 10/16/17 12:43 Last Admin: 10/16/17 12:49 Dose: 4 mg Departure - Departure Disposition: Home, Routine, Self-Care Clinical Impression: Influenza Condition: Good Instructions: Influenza (ED) Additional Instructions: Read and follow provided instructions. Follow-up with your primary care physician on Thursday or Thursday of next week for re-evaluation. Get lots of rest. Drink plenty of fluids. Keep well hydrated. Take Tamiflu medication as prescribed through entire course of treatment. 650 mg to 1 g of Tylenol every 6-8 hours as needed for muscle aches and joint aches, fever. Take this medication over the next 3 days only. Return to the emergency department for worsening symptoms, high fever, weakness , difficulty breathing, vomiting and inability to keep fluids down or other serious concerns. Referrals: Bryan Monteiro MD [Primary Care Provider] - As per Instructions Prescriptions: Ondansetron Odt [Zofran Odt 4 mg (*)] 4 mg PO Q4PRN PRN #10 tab PRN Reason: For Nausea & Vomiting Oseltamivir Phosphate [Tamiflu 75 mg (RX)] 75 mg PO BID #10 cap
[2017-10-16 15:15] VITALS: BP 102/66; PULSE 81; TEMP 99.9; O2SAT 93
== END 2017-10-16 15:15 | disposition home or self-care (01) ==
DX: J11.1 Influenza due to unidentified influenza virus with other respiratory manifestations (principal); I25.10 Atherosclerotic heart disease of native coronary artery without angina pectoris; I12.9 Hypertensive chronic kidney disease with stage 1 through stage 4 chronic kidney disease, or unspecified chronic kidney disease; N18.3 Chronic kidney disease, stage 3 (moderate); E86.9 Volume depletion, unspecified; Z79.82 Long term (current) use of aspirin; Z95.5 Presence of coronary angioplasty implant and graft; Z99.2 Dependence on renal dialysis
CPT/HCPCS: 71020; 93005; 96361; 96365; 96375; 99285; J2405

== ENCOUNTER → 2018-03-10 | Outpatient (CLI) | payer OTHER | LOC: FIMAGING 09:55 | PROVIDERS: ATTEND Obstetrics & Gynecology | DX: Z12.31 Encounter for screening mammogram for malignant neoplasm of breast (principal) ==

== ENCOUNTER → 2018-03-30 | Outpatient (CLI) | payer OTHER | LOC: FIMAGING 11:13 | PROVIDERS: ATTEND Obstetrics & Gynecology | DX: R92.8 Other abnormal and inconclusive findings on diagnostic imaging of breast (principal) ==

== ENCOUNTER → 2018-04-06 | Outpatient (CLI) | payer OTHER | LOC: FIMAGING 11:46 | PROVIDERS: ATTEND Internal Medicine Rheumatology | DX: Z13.820 Encounter for screening for osteoporosis (principal); M85.89 Other specified disorders of bone density and structure, multiple sites; Z78.0 Asymptomatic menopausal state; Z98.1 Arthrodesis status ==

== ENCOUNTER 2018-09-28 10:52 | Day surgery (SDC) | payer OTHER ==
[2018-09-28] MEDS ORDERED: NS 500 ML IV ONE (10:59)
[2018-09-28] MEDS ORDERED: MIDAZOLAM 2 MG/2 ML VIAL ONE (11:10)
[2018-09-28] MEDS ORDERED: fentaNYL 100 MCG/2 ML INJ ONE (11:10)
[2018-09-28] MEDS ORDERED: LR 1,000 ML IV ONE (11:43)
--- NOTE | 2018-09-28 11:53 | PDGENHP ---
History & Physical Chief Complaint: phx polyps History of Present Illness: phx polyps s/p colon Pertinent Past, Social, Family History: FHx - cancer grandma, uncle bladder, father prostate. SHx - no tobacco, rare alcohol Relevant Physical Exam: A+Ox3. CTA. S1S2. +BS, soft Cardiorespiratory Assessment: class 3
--- NOTE | 2018-09-28 11:58 | PDPROPOC ---
Sedation Plan of Care Sedation Plan of Care: vital signs stable, mental status noted, patient educated of risks, benefits, alternatives, patient can tolerate sedation ASA Classification: ASA 3 Planned drugs: fentanyl, midazolam Mallampati Score: Class 2 Mallampati Reference Image: Patient passed 3-3-2 rule?: Yes
[2018-09-28] MEDS ORDERED: MIDAZOLAM 2 MG/2 ML VIAL IVP ONE (12:32)
[2018-09-28] MEDS ORDERED: fentaNYL 100 MCG/2 ML INJ IVP ONE (12:32)
--- NOTE | 2018-09-28 12:59 | GIREPORT ---
[facility] Surgical Services - Endoscopy Department Patient Name: Yuni Garcia Procedure Date: 09/28/2018 11:10 AM Patient Type: Outpatient Attending MD/ ER Physician: Ayl Murray MD Procedure: Colonoscopy Indications: Surveillance: Piecemeal removal of large sessile adenoma last colonosco py (< 3 yrs) Providers: Aly Murray MD Referring MD: Bryan Monteiro MD, Lashanda Helms MD Medicines: Fentanyl 100 micrograms IV, Midazolam 5 mg IV Complications: No immediate complications. Estimated blood loss: Minimal. Description of Procedure: After obtaining informed consent, the scope was passed under direct vis ion. Throughout the procedure, the patient's blood pressure, pulse, and oxyg en saturations were monitored continuously. The Colonoscope with irrigatio n channel was introduced through the anus and advanced to the cecum, identified by the appendiceal orifice, ileocecal valve and palpation. T he colonoscopy was performed without difficulty. The patient tolerated the procedure well. The quality of the bowel preparation was good. Findings: The digital rectal exam was normal. A tattoo was seen in the ascending colon. A post-polypectomy scar was f ound at the tattoo site. There was no evidence of residual polyp tissue. Bio psies were taken with a cold forceps for histology. Estimated blood loss was minimal. Two semi-sessile polyps were found in the proximal transverse colon. Th e polyps were 2 to 3 mm in size. These polyps were removed with a pieceme al technique using a cold biopsy forceps. Resection and retrieval were complete. Estimated blood loss was minimal. Many medium-mouthed diverticula were found in the sigmoid colon, descen ding colon and distal transverse colon. The exam was otherwise without abnormality. Estimated Blood Loss: Estimated blood loss was minimal. Post Op Diagnosis: - A tattoo was seen in the ascending colon. A post-polypectomy scar was found at the tattoo site. There was no evidence of residual polyp tissu e. Biopsied. - Two 2 to 3 mm polyps in the proximal transverse colon, removed piecem eal using a cold biopsy forceps. Resected and retrieved. - Diverticulosis in the sigmoid colon, in the descending colon and in t he distal transverse colon. - The examination was otherwise normal. Recommendation: - Await pathology results. - My office will call with the pathology result with 5-7 days. If you h ave not heard from my office by 10-08, do not assume the pathology is tita l, please call [phone] to get the pathology reults. - Repeat colonoscopy in 2 years for surveillance based on pathology res ults. long as no adenomatous tissue at scar/previous - High fiber diet indefinitely. - 30-35 grams of dietary fiber per day. Can use supplemental fiber. - A high fiber diet may decrease risk of complications from diverticulo sis. There is no need to avoid seeds or nuts. - Patient has a contact number available for emergencies. The signs and symptoms of potential delayed complications were discussed with the pat ient. Return to normal activities tomorrow. Written discharge instructions we re provided to the patient. - Continue present medications. - Discharge patient to home (ambulatory). - Return to referring physician as previously scheduled. - Thank you for allowing me to help in your patient's care. Do not hesi perez to call with any questions. Attending Participation: I personally performed the entire procedure. Trevor Resendiz M.D Aly Murray MD 09/28/2018 12:59:02 PM This report has been signed electronicallyMattshimon Murray MD Number of Addenda: 0 Note Initiated On: 09/28/2018 11:10 AM Total Procedure Duration Time 0 hours 20 minutes 30 seconds [email or web address]
[2018-09-28 14:18] VITALS: BP 137/82
== END 2018-09-28 13:55 | disposition home or self-care (01) ==
LOC: FSGY 10:52
PROVIDERS: ATTEND Internal Medicine Gastroenterology
PROC: 0DBL8ZX Excision of Transverse Colon, Via Natural or Artificial Opening Endoscopic, Diagnostic (ICD-10-PCS; principal; 2018-09-28 12:00)
DX: D12.3 Benign neoplasm of transverse colon (principal); Z86.010 Personal history of colon polyps
CPT/HCPCS: J1642; J2250; J3010

== ENCOUNTER 2019-02-09 17:19 | Observation (INO) | payer OTHER ==
[2019-02-09 18:16] LABS: PLATELET COUNT 214 10^3/uL (150-400)
--- NOTE | 2019-02-09 18:20 | EDPHY ---
H & P Time Seen by Provider: 02/09/19 18:06 HPI/ROS: Chief complaint. High blood pressure HPI. Patient is a 64-year-old female with elevated blood pressure. She has a history of hypertension though it has been quite labile. She recently has had problems with low blood pressure and has been using her antihypertensive medications more on a p.r.n. Basis. She had eye surgery for glaucoma yesterday. She developed high blood pressure since last night. She has headache and left eye pain from her surgery. She has bruising around the eye. She has no chest pain or shortness of breath. No abdominal pain or vomiting or diarrhea. No fever or cough. Left back pain for several months not worse. 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 She was on dialysis and quite hypertensive. She spoke to her passenger locomotive engineer today Dr. Walker who recommended she come to the emergency department. 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 ENT, Mouth: Mucous membranes are moist. Respiratory: There are no retractions, lungs are clear to auscultation. Cardiovascular: Regular rate and rhythm. Gastrointestinal: Abdomen is soft and nontender, no masses, bowel sounds normal. Neurological: Awake and alert, sensory and motor exams grossly normal. Skin: Warm and dry, no rashes. Musculoskeletal: Neck is supple nontender. Extremities symmetrical, full range of motion. Psychiatric: Patient is oriented X 3, there is no agitation. Constitutional: Initial Vital Signs Temperature (C) 36.7 C 02/09/19 17:28 Heart Rate 76 02/09/19 17:28 Respiratory Rate 18 02/09/19 17:28 Blood Pressure 220/122 H 02/09/19 17:28 O2 Sat (%) 97 02/09/19 17:28 O2 Delivery Mode Room Air Allergies/Adverse Reactions: amlodipine besylate [From [employer]] Allergy (Verified 09/28/18 11:23) cefepime Allergy (Verified 09/28/18 11:23) etanercept [From Enbrel] Allergy (Verified 09/28/18 11:23) levofloxacin Allergy (Verified 09/28/18 11:23) nifedipine [From Procardia] Allergy (Verified 09/28/18 11:23) tamsulosin HCl [From Flomax] Allergy (Verified 09/20/18 10:47) Home Medications: Medication Instructions Recorded Eculizumab [Soliris] 1 dose IV Q28D 03/13/16 Fluconazole [Diflucan] 200 mg PO DAILY@1400 03/13/16 Lisinopril [Zestril 5 mg (*)] 2.5 mg PO DAILY 03/21/16 Ciprofloxacin [Cipro] 500 mg PO DAILY 04/29/17 Clopidogrel Bisulfate [Clopidogrel] 75 mg PO HS 04/29/17 Herbals/Supplements -Info Only 1 tab PO DAILY 04/29/17 Hydrochlorothiazide 12.5 mg PO DAILY 04/29/17 Citric Acid/Sodium Citrate [Sod 10 ml PO DAILY 05/05/18 Citrate-Citric Acid Soln] Metoprolol Succinate Xr [Toprol Xl 25 mg PO DAILY 05/05/18 25 mg (*)] predniSONE 5 mg PO EVERY OTHER DAY 05/11/18 Aspirin [Aspirin 81mg (*)] 81 mg PO DAILY 09/20/18 Ranolazine [Ranexa] 500 mg PO BID 09/20/18 Atorvastatin Calcium [Lipitor 10 10 mg PO DAILY 02/09/19 mg (*)] Cholecalciferol (Vitamin D3) 5,000 unit PO MOTH 02/09/19 [Vitamin D3] Polymyxin B Sulf/Trimethoprim 1 drop LEFTEYE QID 02/09/19 [Polymyxin B-Tmp Eye Drops] Prednisolone Acetate/Pf 1 drop LEFTEYE QID 02/09/19 [Prednisolone Acet 1% Eye Drop] Propylene Glycol/Peg 400 [Systane 1 drop EACHEYE Q2H PRN 02/09/19 Gel Eye Drops] predniSONE [Prednisone] 7.5 mg PO EVERY OTHER DAY 02/09/19 Medical Decision Making - Diagnostics EKG Interpretation: EKG is interpreted by me showing normal sinus rhythm normal interval and axis. LVH by voltage criteria. QRS is otherwise normal. No ST elevation or depression. No arrhythmia. The rate is 61 Procedures: IV normal saline. I consulted discussed the case with Dr. Walker who does not have recommendation for specific antihypertensive I consulted discussed case with physician veterinarian assistant Palmer Patel who is on- call for patient's regular physician Dr. Monteiro. He and I discussed antihypertensives and MAMI Patel recommends initially clonidine. Serial evaluations patient's blood pressure remains high. I again discussed antihypertensive therapy with using medications such as intravenous labetalol. Apparently because the patient is a fairly brittle hypertensive he would like to use oral medication. Patient complains postop eye pain and she is given Percocet and Zofran. ED Course/Re-evaluation: MAMI Patel sees the patient in the emergency department. Patient family and I discussed treatment plan including recommendation for admission. They expressed understanding and agreement Differential Diagnosis: Hypertensive after eye surgery yesterday. Previous hemolytic uremic syndrome with renal failure after surgery. HUS labs appear normal tonight - Data Points Laboratory Results: Laboratory Results 02/09/19 17:55 02/09/19 17:55 02/09/19 02/09/19 02/09/19 18:45 18:03 17:55 WBC RBC Hgb Hct MCV MCH MCHC RDW Plt Count MPV Neut % (Auto) Lymph % (Auto) Mccormick % (Auto) Eos % (Auto) Baso % (Auto) Nucleat RBC Rel Count Absolute Neuts (auto) Absolute Lymphs (auto) Absolute Monos (auto) Absolute Eos (auto) Absolute Basos (auto) Absolute Nucleated RBC Immature Gran % Immature Gran # PT INR APTT Sodium 137 mEq/L mEq/L (135-145) Potassium 4.1 mEq/L mEq/L (3.5-5.2) Chloride 104 mEq/L mEq/L (97-110) Carbon Dioxide 20 mEq/l L mEq/l (22-31) Anion Gap 13 mEq/L mEq/L (6-14) BUN 26 mg/dL H mg/dL (7-23) Creatinine 1.3 mg/dL H mg/dL (0.6-1.0) Estimated GFR 42 Glucose 103 mg/dL H mg/dL (70-100) Calcium 9.5 mg/dL mg/dL (8.5-10.4) Total Bilirubin 0.6 mg/dL mg/dL (0.1-1.4) Conjugated Bilirubin 0.3 mg/dL mg/dL (0.0-0.5) Unconjugated Bilirubin 0.3 mg/dL mg/dL (0.0-1.1) AST 24 IU/L IU/L (14-46) ALT 35 IU/L IU/L (9-52) Alkaline Phosphatase 41 IU/L IU/L (38-126) Lactate Dehydrogenase 583 IU/L IU/L (313-618) POC Troponin I 0.00 ng/mL ng/mL (0.00-0.08) Total Protein 7.1 g/dL g/dL (6.3-8.2) Albumin 4.3 g/dL g/dL (3.5-5.0) Urine Color PALE YELLOW Urine Appearance CLEAR Urine pH 6.0 (5.0-7.5) Ur Specific [place] 1.005 (1.002-1.030) Urine Protein 1+ H (NEGATIVE) Urine Ketones NEGATIVE (NEGATIVE) Urine Blood 1+ H (NEGATIVE) Urine Nitrate NEGATIVE (NEGATIVE) Urine Bilirubin NEGATIVE (NEGATIVE) Urine Urobilinogen NEGATIVE EU EU (0.2-1.0) Ur Leukocyte Esterase NEGATIVE (NEGATIVE) Urine RBC 3-5 /hpf H /hpf (0-3) Urine WBC 1-3 /hpf /hpf (0-3) Ur Epithelial Cells TRACE /lpf /lpf (NONE-1+) Urine Mucus TRACE /lpf /lpf (NONE-1+) Urine Glucose NEGATIVE (NEGATIVE) 02/09/19 02/09/19 17:55 17:55 WBC 4.90 10^3/uL 10^3/uL (3.80-9.50) RBC 4.58 10^6/uL 10^6/uL (4.18-5.33) Hgb 15.1 g/dL g/dL (12.6-16.3) Hct 45.4 % % (38.0-47.0) MCV 99.1 fL fL (81.5-99.8) MCH 33.0 pg pg (27.9-34.1) MCHC 33.3 g/dL g/dL (32.4-36.7) RDW 14.7 % % (11.5-15.2) Plt Count 214 10^3/uL 10^3/uL (150-400) MPV 10.2 fL fL (8.7-11.7) Neut % (Auto) 71.3 % % (39.3-74.2) Lymph % (Auto) 16.9 % % (15.0-45.0) Mccormick % (Auto) 11.2 % % (4.5-13.0) Eos % (Auto) 0.2 % L % (0.6-7.6) Baso % (Auto) 0.2 % L % (0.3-1.7) Nucleat RBC Rel Count 0.0 % % (0.0-0.2) Absolute Neuts (auto) 3.49 10^3/uL 10^3/uL (1.70-6.50) Absolute Lymphs (auto) 0.83 10^3/uL L 10^3/uL (1.00-3.00) Absolute Monos (auto) 0.55 10^3/uL 10^3/uL (0.30-0.80) Absolute Eos (auto) 0.01 10^3/uL L 10^3/uL (0.03-0.40) Absolute Basos (auto) 0.01 10^3/uL L 10^3/uL (0.02-0.10) Absolute Nucleated RBC 0.00 10^3/uL 10^3/uL (0-0.01) Immature Gran % 0.2 % % (0.0-1.1) Immature Gran # 0.01 10^3/uL 10^3/uL (0.00-0.10) PT 13.1 SEC SEC (12.0-15.0) INR 1.03 (0.83-1.16) APTT 30.8 SEC SEC (23.0-38.0) Sodium Potassium Chloride Carbon Dioxide Anion Gap BUN Creatinine Estimated GFR Glucose Calcium Total Bilirubin Conjugated Bilirubin Unconjugated Bilirubin AST ALT Alkaline Phosphatase Lactate Dehydrogenase POC Troponin I Total Protein Albumin Urine Color Urine Appearance Urine pH Ur Specific [place] Urine Protein Urine Ketones Urine Blood Urine Nitrate Urine Bilirubin Urine Urobilinogen Ur Leukocyte Esterase Urine RBC Urine WBC Ur Epithelial Cells Urine Mucus Urine Glucose Medications Given: Discontinued Medications Clonidine (Catapres) 0.1 mg PO EDNOW ONE Stop: 02/09/19 18:50 Last Admin: 02/09/19 18:55 Dose: 0.1 mg Ondansetron HCl (Zofran Odt) 4 mg PO EDNOW ONE Stop: 02/09/19 19:05 Last Admin: 02/09/19 19:08 Dose: 4 mg Oxycodone/Acetaminophen (Percocet 5/325) 1 tab PO EDNOW ONE Stop: 02/09/19 19:05 Last Admin: 02/09/19 19:08 Dose: 1 tab Point of Care Test Results: Chemistry 02/09/19 18:03 POC Troponin I 0.00 ng/mL ng/mL (0.00-0.08) Departure - Departure Disposition: [facility] Inpatient Acute Clinical Impression: Hypertensive urgency Condition: Fair
[2019-02-09 18:29] LABS: INR 1.03 (0.83-1.16); PROTIME(PATIENT) 13.1 SEC (12.0-15.0)
[2019-02-09] MEDS ORDERED: ONDANSETRON DISINTEGRATING 4 MG TAB PO ONE (19:04)
[2019-02-09] MEDS ORDERED: OXYCODONE/APAP 5/325 TAB PO ONE (19:04)
[2019-02-09] MEDS ORDERED: METOPROLOL TARTRATE 25 MG TAB PO ONE ×2 (20:12→21:00)
[2019-02-09] MEDS ORDERED: OXYCODONE/APAP 5/325 TAB PO PRN (20:13)
[2019-02-09] MEDS ORDERED: ONDANSETRON DISINTEGRATING 4 MG TAB PO PRN (20:13)
[2019-02-09] MEDS ORDERED: LORazepam 0.5 MG TAB PO PRN (20:13)
[2019-02-09] MEDS ORDERED: ACETAMINOPHEN 325 MG TAB PO PRN (20:13)
[2019-02-09] MEDS ORDERED: ONDANSETRON 4 MG/2 ML VIAL IVP PRN (20:13)
[2019-02-09] MEDS ORDERED: diphenhydrAMINE 25 MG CAP PO PRN (20:13)
[2019-02-09] MEDS ORDERED: HYDROmorphONE/DILAUDID 1 MG/ML INJ IVP PRN (20:13)
[2019-02-09] MEDS ORDERED: NS 1,000 ML IV SCH (20:15)
[2019-02-09] MEDS ORDERED: LISINOPRIL 5 MG TAB PO SCH (20:15)
[2019-02-09] MEDS ORDERED: hydrALAZINE 20 MG/ML VIAL IVP PRN (20:18)
[2019-02-09] MEDS ORDERED: METOPROLOL TARTRATE 25 MG TAB ONE (20:21)
--- NOTE | 2019-02-09 20:22 | SOAPPROG ---
SOAP Progress Note Assessment/Plan: Assessment: Plan: 02/09/19 20:22 hypertensive urgency. She has been very responsive to very low doses of BP meds recently. BP was as low as 82 systolic less than 2 weeks ago. Lisinopril has been reduced to 2.5 mg daily. Metoprolol ER 25 mg HS, HCTZ 12.5 mg daily. Norvasc side effect is edema (allergy listed) 0.1 mg of clonidine has not changed BP in ER. Will give 5 mg of lisinopril now, 25 mg of metoprolol tartrate now, and follow BP. PRN's added left eye surgery and pain, follow, eye check with Dr Avalos today was ok. HUS hx--labs ok pred therapy 7.5/5 QOD Subjective: Eye surgery yesterday for glaucoma. Small stent for pressure drainage placed by Dr Avalos. Noted BP high last night at 195 systolic. BP high again today. Became concerned that it was still elevated. Contacted Dr Walker and ultimately she came to the ER for blood work and eval. + GRACIA, left sided, she is not sure home much is related to the eye surgery or the BP elevation. No SOB , no CP, no n/v, no acute N/W/T Objective: Vital Signs Temp Pulse Resp BP Pulse Ox 36.7 C 79 18 203/133 H 97 02/09/19 17:28 02/09/19 20:15 02/09/19 20:15 02/09/19 20:15 02/09/19 20:15 PT 13.1 SEC (12.0-15.0) 02/09/19 17:55 INR 1.03 (0.83-1.16) 02/09/19 17:55 Gen: mildly anxious HEENT: left eye (surgical eye) injected Speech appropriate Lungs: CTAB Heart: RRR no murmur Abd + bs ,soft, NT, ND LE's no edema bedside BP 203/135 ICD10 Worksheet Patient Problems: Problems Problem Status Onset Bacteremia due to Pseudomonas Acute Chest pain Acute Coronary artery disease Acute Fusion of spine of thoracolumbar region Acute Intestinal perforation Acute Left-sided weakness Acute
[2019-02-09] MEDS ORDERED: PEG EACHEYE PRN (20:26)
[2019-02-09] MEDS ORDERED: PROPYLENE GLYCOL EACHEYE PRN (20:26)
[2019-02-09] MEDS ORDERED: CLOPIDOGREL BISULFATE 75 MG TAB PO SCH (21:00)
[2019-02-09] MEDS ORDERED: METOPROLOL SUCCINATE XR 25 MG TAB PO SCH (21:00)
--- NOTE | 2019-02-09 21:06 | GHP ---
[f rep st] HISTORY AND PHYSICAL DATE OF ADMISSION: 02/09/2019 REASON FOR ADMISSION: Hypertensive urgency. HISTORY OF PRESENT ILLNESS: Ms. Garcia has a complicated past medical history. She had a stent pl acement type glaucoma surgery performed yesterday by Dr. Durand. She had followup exam today and co nfirmed that things were going well on that front. Last night, she checked her blood pressure at [facility] and found a number of 195 systolic. She did not have any unusual symptoms, decided to take her nor mal doses of medicine including 2.5 mg of lisinopril, 25 mg of metoprolol long-acting, and 12.5 mg of hydrochlorothiazide. Today her blood pressure remained to be elevated. Eventually, she contacted Jeana Walker, given him managing her BP most singularly these days. Given her blood pressure elevati ons and desire to see if there was anything acutely concerning regarding her labs, she was sent to th e ER for further evaluation. She was then found here to have blood pressure above 200, systolic maxi mum value of 235 systolic. She does have some left-sided headache, which she is not sure whether idalmis t relates to her recent eye surgery or the blood pressure. No change in her right eye vision. Left eye has diminished significantly after recent surgeries and use of topical drops. She does not have shortness of breath, cough, wheeze. Or congestion. No acute chest pain or palpitations. No nausea, vomiting. No GI complaints acutely. No change in bowel patterns. No numbness, weakness, or tinglin g that is acute in either hands or feet. She is on chronic steroids for inflammatory arthritis, this is managed by Dr. Sumeet Gilliland. She alternates currently between 5 and 7.5 mg every day. She is on infusion based anti-inflammatory medications described by him as well. Those are listed in her chart . No changes in those medications recently. She is on a complex glaucoma drop therapy plan. This h as also been stable. Acute surgeries as mentioned above. PAST MEDICAL HISTORY: 1. Significant for hemolytic uremic syndrome. 2. Hypertension with large variability in blood pressure control numbers. 3. Glaucoma, managed by Dr. Durand with recent surgery. 4. Inflammatory arthritis on complex infusion therapy as managed by Dr. Gilliland. 5. History of Pseudomonas on chronic Cipro. 6. History of Emily on chronic fluconazole. ALLERGIES: Noted for amlodipine, which after discussion with patient, is purely edema, cefepime, lev ofloxacin, nifedipine which cause sedation, tamsulosin which causes nasal stuffiness. PAST SURGICAL HISTORY: 1. Recent surgery, left eye with glaucoma, stent placement. 2. Perforated abdomen last summer requiring laparotomy. 3. Prior tonsillectomy. 4. Thoracic and lumbar spine scoliosis repair. 5. Left wrist fusion. 6. Left hip replacement. 7. Bilateral foot surgery. 8. Bilateral knee replacements. 9. Angioplasties with stents. 10. Cataract surgery. 11. Right knee scope. SOCIAL HISTORY: Nonsmoker. She does use caffeine. Exercise is limited based on current health pict ure. FAMILY HISTORY: Father with known heart disease, kidney stones, prostate cancer, arthritis. Mother with a history of hysterectomy at a younger age. Siblings alive, adopted. MEDICATIONS: Blood pressure medicines as noted. Please see pharmaceutical review as documented per chart. PHYSICAL EXAM: VITAL SIGNS: Blood pressure peak 233/125. Repeat blood pressure measurement when I was present with patient 203/133, heart rate 60s to 70s. Respiratory rate 16 to 18, saturations 97% to 99% on room air. She is afebrile. GENERAL: Somewhat uncomfortable, mildly anxious, otherwise pl easant patient resting comfortable in [facility] at time of interview. HEENT: Right eye is unr emarkable. Left eye injected with a mildly narrowed pupil. Scalp without tenderness. No evidence o f trauma besides bruising under left eye from recent surgery. Speech is fluent and intact. Content is appropriate. NECK: Without masses. No jugular venous pressure elevation. No carotid bruits. L UNGS: Clear without crackles or wheeze. HEART: Piero, regular rate and rhythm without murmur. ABD OMEN: Positive bowel sounds. Soft, nontender, nondistended. BREASTS/PELVIC: Deferred. SKIN: War m, dry, intact. EXTREMITIES: Diminished right radial pulse. Positive left radial pulse. No eviden ce of arterial flow insufficiency to either hand. Lower extremities without edema. Postsurgical zaki nges are noted in multiple joints. LABORATORY DATA: White count 4.9, hemoglobin 15.1, platelets 214. INR normal at 1.03. Metabolic pa thalia: BUN 26, creatinine 1.3, glucose 103, potassium 4.1, liver functions normal. Troponin negative. Urinalysis: Trace to 1+ protein and blood, otherwise negative. EKG is currently not available on hospital computer in the ER. ASSESSMENT: 1. Hypertensive emergency in patient with complex medical history. Will give her 25 mg of metoprolo l tartrate now, as well as 5 mg of lisinopril now. This was discussed with the patient. She has a h istory of being somewhat exquisitely sensitive to antihypertensives. She does have also stretches in her life where postoperative blood pressure control has been challenging, presumably after her recen t eye surgery yesterday perhaps anesthetics or stressors are triggering her hypertensive responses no w. Will continue her baseline doses of lisinopril, hydrochlorothiazide, and metoprolol long-acting, p.r.n. medications including clonidine and hydralazine have been ordered. Will titrate medications t o affect. Consider use of amlodipine, although it causes edema. She is willing to accept the side-e ffect transiently while we are getting her blood pressure under better control. 2. Acute left eye glaucoma, stent placement type surgery. She is having some eye pain which seems t o increased. Whether this relates to her eye or blood pressure is unclear. Will follow this closely . Potential consult with Ophthalmology may be necessary. 3. History of hemolytic uremic syndrome. No evidence of end-organ challenges at the moment. 4. Chronic inflammatory arthritis. Continue current medication management as per Dr. Gilliland. Will co ntinue every other day dosing of prednisone at 5 and then 7.5 mg as reconciled by pharmacy. It is ho ped the patient will be an observation admission to the PCU floor. /[id number]/MODL
--- NOTE | 2019-02-09 21:50 | CPEKG ---
Test Reason : OPEN Blood Pressure : / mmHG Vent. Rate : 061 BPM Atrial Rate : 061 BPM P-R Int : 137 ms QRS Dur : 073 ms QT Int : 455 ms P-R-T Axes : 003 015 047 degrees QTc Int : 459 ms Sinus rhythm Consider left ventricular hypertrophy Confirmed by Bryson Garcia ([id number]) on 02/09/2019 9:49:31 PM Referred By: PHYSICIAN ED Confirmed By:Bryson Garcia
[2019-02-09] MEDS ORDERED: ATORVASTATIN CALCIUM 10 MG TAB PO SCH (22:15)
[2019-02-09] MEDS: RANOLAZINE 500 MG TAB.ER PO SCH (22:20)
[2019-02-09] MEDS: Prednisolone Acetate/Pf [Prednisolone Acet 1% Eye Drop] LEFTEYE SCH (22:22)
[2019-02-09] MEDS: POLYMYXIN B SULFATE/TMP 10 ML OPHT.BTL LEFTEYE SCH (22:28)
[2019-02-10] MEDS: Prednisolone Acetate/Pf [Prednisolone Acet 1% Eye Drop] LEFTEYE SCH ×2 (05:13→11:00)
[2019-02-10] MEDS: POLYMYXIN B SULFATE/TMP 10 ML OPHT.BTL LEFTEYE SCH ×2 (05:15→11:00)
[2019-02-10] MEDS ORDERED: Herbals/Supplements -Info Only PO SCH (09:00)
[2019-02-10] MEDS ORDERED: predniSONE 5 MG TAB PO SCH (09:00)
[2019-02-10] MEDS ORDERED: CIPROFLOXACIN 500 MG TAB PO SCH (09:00)
[2019-02-10] MEDS ORDERED: ASPIRIN 81 MG CHEWABLE TAB PO SCH (09:00)
[2019-02-10] MEDS ORDERED: CITRIC ACID/SODIUM CITRATE 30 ML UDCUP PO SCH (09:00)
[2019-02-10] MEDS ORDERED: HYDROCHLOROTHIAZIDE 12.5 MG CAP PO SCH (09:00)
--- NOTE | 2019-02-10 09:08 | SOAPPROG ---
SOAP Progress Note Assessment/Plan: Assessment: Plan: 02/10/19 09:05 Hypertension: BP back down to normal. Has not fully resumed her usual BP meds, though they are ordered. Will continue to observe today and if stable, possibly home this afternoon. CAD: requesting troponin be done, as she had some mild chest discomfort last night. Hx of stenting. Glaucoma: s/p surgery yesterday and a sense of decreased vision in last [address] Avalos know. CKD: creatinine stable inflammatory arthritis: stable 02/10/19 09:08 Subjective: Feeling ok this morning. Frustrated and wants to know why her BP was so high last night. Her L eye is uncomfortable and she feels like her vision has decreased some in the last 12 hours. BP has come down nicely over night. Objective: Vital Signs Temp Pulse Resp BP Pulse Ox 36.8 C 50 L 12 103/62 98 02/10/19 07:08 02/10/19 07:08 02/10/19 07:08 02/10/19 07:08 02/10/19 07:08 Laboratory Results 02/10/19 05:20 02/09/19 02/10/19 02/11/19 05:59 05:59 05:59 Intake Total 120 Output Total 100 Balance 20 PT 13.1 SEC (12.0-15.0) 02/09/19 17:55 INR 1.03 (0.83-1.16) 02/09/19 17:55 General: awake, alert, NAD HEENT: bruising below L eye Neck: supple Lungs: clear CV: mild bradycardia, no murmur Extremities: no edema ICD10 Worksheet Patient Problems: Problems Problem Status Onset Hypertensive urgency Acute Bacteremia due to Pseudomonas Acute Chest pain Acute Coronary artery disease Acute Fusion of spine of thoracolumbar region Acute Intestinal perforation Acute Left-sided weakness Acute
[2019-02-10] MEDS: RANOLAZINE 500 MG TAB.ER PO SCH (10:07)
[2019-02-10] MEDS: LISINOPRIL 5 MG TAB PO SCH ×2 (10:08→10:11)
[2019-02-10] MEDS ORDERED: FLUCONAZOLE 100 MG TAB PO SCH (14:00)
--- NOTE | 2019-02-10 14:08 | ASDISCHSUM ---
Discharge Information Plan Status:Home with No Needs Medically Cleared to Leave:02/10/2019 Discharge Date:02/10/2019 CM D/C Disposition:Home, Routine, Self-Care ADT D/C Disposition: Projected Discharge Date:02/10/2019 Transportation at D/C: Discharge Delay Reason: Follow-Up Date:02/10/2019 Discharge Slot: Final Diagnosis: Placement Information Patient Contact Information Contact Name:REEMA Relationship: Address:[address] Work Phone: City:[place] [facility] Phone: State/Zip Code:[place] [address] Email: Financial Information Financial Class:Medicare Primary Plan Desc:MEDICARE OUTPATIENT Primary Plan Number:[id number] Secondary Plan Desc:SARAH Secondary Plan Number:[id number] Assessment Information LACE LACE Length of stay for Answers: Less than 1 day current admission Comorbidities - select Answers: Coronary Artery Disease all that apply Mild liver or renal disease Opioid dependence / Chronic pain Other Notes: HTN # of Emergency department Answers: 1-2 visits in the last 6 months Score: 10 Date Signed: 02/10/2019 02:07 PM Electronically Signed By:Katie Grimes Intervention Information
--- NOTE | 2019-02-10 14:39 | GDS ---
[f rep st] DISCHARGE SUMMARY DISCHARGE DIAGNOSES: 1. Hypertension. 2. Glaucoma. 3. Coronary artery disease. 4. Inflammatory arthritis. 5. Chronic renal insufficiency. HOSPITAL COURSE: The patient is a 64-year-old woman with a complex past medical history who earlier on the day of admission underwent a surgical procedure for glaucoma. Later in the day, blood pressur e was noted to be markedly elevated and she was advised by Dr. Walker to come to the emergency dep artment for further evaluation. Her lab results were unremarkable. She was initially treated with 0.1 mg of clonidine in the emergen cy department and then subsequently treated with 25 mg of metoprolol orally and 5 mg of lisinopril ov er the course of the evening, and the next day, her blood pressure came down nicely without any furth er incident. She was complaining of significant right eye pain postoperatively and a sense that her vision might h ave somewhat decreased since her surgery. Dr. Durand was notified and did come in to see the patien t and she will follow up with him in the morning. None of her discharge medications werechanged and she will resume her usual antihypertensive regimen with plans to follow up with Dr. Durand tomorrow morning. I feel that she is stable for discharge. /[id number]/MODL
[2019-02-10 15:11] VITALS: BP 133/66
[2019-02-10] MEDS ORDERED: CHOLECALCIFEROL VIT D3 1,000 UNITS TAB PO SCH (20:26)
[2019-02-10] MEDS ORDERED: LISINOPRIL 5 MG TAB PO SCH (21:00)
[2019-02-11] MEDS ORDERED: predniSONE 5 MG TAB PO SCH (09:00)
[2019-02-23] MEDS ORDERED: ECULIZUMAB IV SCH (09:00)
== END 2019-02-10 15:28 | disposition home or self-care (01) ==
LOC: INTOOBSV 18:49 → F2W 20:50
PROVIDERS: ADMIT Internal Medicine; ATTEND Internal Medicine
DX: I16.0 Hypertensive urgency (principal); H40.9 Unspecified glaucoma; Z98.890 Other specified postprocedural states; I25.10 Atherosclerotic heart disease of native coronary artery without angina pectoris; N18.9 Chronic kidney disease, unspecified; M19.90 Unspecified osteoarthritis, unspecified site; Z95.5 Presence of coronary angioplasty implant and graft; Z96.642 Presence of left artificial hip joint; Z96.653 Presence of artificial knee joint, bilateral
CPT/HCPCS: 93005; 96374; 99285; G0378; J1642; J7512; 84484-ER

== ENCOUNTER → 2019-03-18 | Outpatient (CLI) | payer OTHER | LOC: FIMAGING 19:31 | PROVIDERS: ATTEND Physician Assistant | DX: R51 Headache (principal) | CPT/HCPCS: 70551-PN ==

== ENCOUNTER → 2019-03-29 | Outpatient (CLI) | payer OTHER | LOC: FIMAGING 13:09 ==